=== PATIENT | female | born 1975 | race Two or more races ===

== ENCOUNTER → 2018-10-01 17:13 | Emergency (ER) | payer MEDICAID, OTHER ==
[~2018-10-01] VITALS: Ht 162.6 cm; Wt 82.1 kg
[2018-10-01 19:40] VITALS: BP 107/69
== END | disposition home or self-care (01) ==
LOC: ER 17:13
DX: S46.911A Strain of unspecified muscle, fascia and tendon at shoulder and upper arm level, right arm, initial encounter (principal); X58.XXXA Exposure to other specified factors, initial encounter; Y93.89 Activity, other specified; Y92.89 Other specified places as the place of occurrence of the external cause; Y99.8 Other external cause status
CPT/HCPCS: 73030